=== PATIENT | male | born 1965 | race Hispanic/Latino ===

== ENCOUNTER 2017-11-25 17:51 | Inpatient (IN) | payer MEDICAID ==
--- NOTE | 2017-11-25 18:25 | C.PDOC ---
History Of Present Illness 51 year old male presents to the ED accompanied by his twin sister requesting detox from alcohol. Patient admits to drinking alcohol and reports he regularly drink 30 beers per day. Patient denies SI/HI, hallucinations, CP, SOB, abdominal pain. Time Seen by Provider: 11/25/17 18:09 Chief Complaint (Nursing): Substance Abuse History Per: Patient History/Exam Limitations: no limitations Onset/Duration Of Symptoms: Days Current Symptoms Are (Timing): Still Present Suicide/Self Injury Attempted (Context): None Modifying Factor(s): Alcohol Associated Symptoms: denies: Depression, Suicidal Thoughts, Suicidal Plan Recent travel outside of the [place]: No Additional History Per: Patient, Family Past Medical History Reviewed: Historical Data, Nursing Documentation, Vital Signs Vital Signs: Last Vital Signs Temp 98 F 11/25/17 21:31 Pulse 75 11/25/17 21:31 Resp 20 11/25/17 21:31 BP 109/66 11/25/17 21:31 Pulse Ox 94 L 11/25/17 21:31 - Medical History PMH: Back Problems, Depression, HTN Surgical History: No Surg Hx Family History: States: Unknown Family Hx - Social History Hx Alcohol Use: Yes Hx Substance Use: No - Immunization History Hx Tetanus Toxoid Vaccination: No Hx Influenza Vaccination: No Hx Pneumococcal Vaccination: No Review Of Systems Constitutional: Negative for: Fever, Chills Cardiovascular: Negative for: Chest Pain Respiratory: Negative for: Shortness of Breath Gastrointestinal: Negative for: Abdominal Pain Skin: Negative for: Rash Psych: Negative for: Depression, Suicidal ideation Physical Exam - Physical Exam Appears: Non-toxic, Other (obese, intoxicated, alcohol on breath ) Skin: Normal Color, Warm, Dry Head: Atraumatic, Normacephalic Eye(s): bilateral: Normal Inspection Nose: No Discharge Oral Mucosa: Moist Neck: Normal ROM, Supple Chest: Symmetrical Cardiovascular: Rhythm Regular, No Murmur Respiratory: Normal Breath Sounds, No Rales, No Rhonchi, No Wheezing Gastrointestinal/Abdominal: Soft, No Tenderness, No Guarding, No Rebound Extremity: Normal ROM, No Tenderness, No Swelling Neurological/Psych: Oriented x3 Gait: Unsteady (due to intoxication) ED Course And Treatment - Laboratory Results Result Diagrams: 11/25/17 18:30 11/25/17 18:30 Lab Interpretation: Abnormal (etoh 329 @ 6PM) O2 Sat by Pulse Oximetry: 95 (ON RA) Pulse Ox Interpretation: Normal - Radiology CXR: Interpreted by Me CXR Interpretation: Yes: No Acute Disease Progress Note: 8PM, Librium 50 mg PO for pt c/o agitation (foul mouthed) and "withdrawal" alcohol level estimated to still be about 300 but pt not sedated. Medical Decision Making Medical Decision Making: Impression: alcohol intoxication Plan: * Labs * UA * CXR Disposition - Disposition Disposition Time: 01:00 Condition: GOOD Forms: [facility] (Uzbek) - Clinical Impression Clinical Impression: Alcohol dependence - Scribe Statement The provider has reviewed the documentation as recorded by the Scribe Venkatesh Dumont All medical record entries made by the Scribe were at my direction and personally dictated by me. I have reviewed the chart and agree that the record accurately reflects my personal performance of the history, physical exam, medical decision making, and the department course for this patient. I have also personally directed, reviewed, and agree with the discharge instructions and disposition. Physician Patient Turnover Patient Signed Over To: Ollie Barron Handoff Comments: pending sober admission for Detox approx 2AM
[2017-11-25 18:38] LABS: HEMOGLOBIN 16.9 g/dL (12.0-18.0); MEAN CELL VOLUME 99.3 fL (80.0-94.0); MEAN CORPUSCULAR HEMOGLOBIN 34.1 pg (27.0-31.0); MEAN CORPUSCULAR HGB CONC 34.3 g/dL (33.0-37.0); MEAN PLATELET VOLUME 6.7 fL (7.2-11.7); PLATELET COUNT 239 K/uL (130-400); RBC 4.96 Mil/uL (4.40-5.90); RED CELL DISTRIBUTION WIDTH 13.9 % (11.5-14.5); WHITE BLOOD COUNT 3.4 K/uL (4.8-10.8)
[2017-11-25 18:42] LABS: SQUAMOUS EPITHIAL < 1 /hpf (0-5); URINE BILIRUBIN NEGATIVE (NEGATIVE); URINE BLOOD NEGATIVE (NEGATIVE); URINE CLARITY Clear (Clear); URINE COLOR Yellow (YELLOW); URINE GLUCOSE (UA) 1+ mg/dL (Normal); URINE LEUKOCYTE ESTERASE NEG Leu/uL (Negative); URINE PROTEIN NEGATIVE (NEGATIVE)
[2017-11-25 18:46] LABS: ALB/GLOB RATIO 1.1 (1.0-2.1); ALT/SGPT 25 U/L (21-72); AST/SGOT 32 U/L (17-59); BLOOD UREA NITROGEN 6 mg/dL (9-20); CALCIUM 8.7 mg/dl (8.6-10.4); GFR AFRICAN-AMERICAN > 60; GFR NON-AFRICAN AMERICAN > 60
[2017-11-25 18:56] LABS: BARBITURATES, UR NEGATIVE (NEGATIVE); BENZODIAZEPINES, UR NEGATIVE (NEGATIVE); OPIATES, UR NEGATIVE (NEGATIVE); PHENCYCLIDINE, UR NEGATIVE (NEGATIVE)
[2017-11-25 20:06] LABS: EOS % 0.4 % (0.0-4.0); LYMPH % 27.3 % (20.0-40.0); MONO % 14.7 % (0.0-10.0); NEUT % 55.9 % (50.0-75.0)
[2017-11-25 20:07] LABS: BASO # 0.1 K/uL (0.0-0.2); BASO % 1.7 % (0.0-2.0); LYMPH # 0.9 K/uL (1.0-4.3); MONO # 0.5 K/uL (0.0-0.8); NEUT # 1.9 K/uL (1.8-7.0)
--- NOTE | 2017-11-26 03:54 | PCM.BM ---
<SaadRosalieShara Alina - Last Filed: 11/26/17 03:53> Treatment Plan Problems - Problems identified on initial assessmt Alcohol Dependence Date Initiated: 11/26/17 Time Initiated: 03:54 Assessment reference: NA Status: Active Treatment assets and liabiliti Patient Assests: ADL independent Patient Liabilities: substance abuse, medical problems - Milieu Protocol Maintain good personal hygiene: daily Encourage regular showers, daily Remind patient to perform daily oral care, daily Assist patient to perform ADL's Maintain personal safety: every shift Educate patient to report safety concerns to staff, every shift Monitor environment for contraband/sharps Medication safety: Monitor for expected outcome, potential side effects: every shift, Assess barriers to learning: every shift, Assess readiness for medication education: every shift <Christina Harp - Last Filed: 11/27/17 13:35> Family Contact Family involvement: Famliy/SO not involved - Goals for Treatment Patient goals for treatment: COMPLETE DETOX AND TRANSITION TO OUTPATIENT COUNSELING. Discharge/Continuing Care - Education Needs Education Needs: Patient Medication, Patient Diagnosis/Disease Process, Patient Coping Skills, Patient Anger Management skills, Patient Placement options, Patient Community resources - Discharge Discharge Criteria: No longer exhibiting s/s of withdrawal, Reduction of target symptoms Discharge to:: Home - Treatment Team Participation Patient/Family/SO Statement: 11/27/17 13:36 "I WANNA DO OUTPATIENT..." Discussed with Family/SO: No Was Patient/Family/SO present at Treatment Team Meeting: Yes <David Sams - Last Filed: 11/28/17 00:39> - Diagnosis (1) Alcohol dependence Status: Acute Interventions: 11/28/17 00:39 * Assess 7x/week regarding severity of withdrawal * Educate regarding risks, benefits, side effects and alternatives of medications * Use Motivational Interviewing for abstinence * Use CBT for relapse prevention * Medication management for withdrawal symptoms * Encourage medication assisted treatment *
[2017-11-26] MEDS ORDERED: Aluminum Hydroxide/Magnesium Hydroxide Susp (30 mL) PO PRN (10:04)
[2017-11-26] MEDS ORDERED: Albuterol HFA 90 mcg/actuation (8 g) INH PRN (10:41)
[2017-11-26] MEDS ORDERED: Albuterol-Ipratrop 3 mg / 0.5 (3 ml) UD INH PRN (10:41)
[2017-11-26] MEDS: Multiple Vitamins Tab PO SCH (11:16)
--- NOTE | 2017-11-26 11:55 | RAD ---
HISTORY: adm COMPARISON: No prior. FINDINGS: LUNGS: No active pulmonary disease. PLEURA: No significant pleural effusion identified, no pneumothorax apparent. CARDIOVASCULAR: No radiographic findings to suggest acute or significant cardiovascular disease. OSSEOUS STRUCTURES: No significant abnormalities. VISUALIZED UPPER ABDOMEN: Normal. OTHER FINDINGS: None. IMPRESSION: No active disease.
[2017-11-26 12:02] LABS: ALB/GLOB RATIO 1.2 (1.0-2.1); ALBUMIN 3.8 g/dL (3.5-5.0); ALT/SGPT 21 U/L (21-72); AST/SGOT 34 U/L (17-59); BLOOD UREA NITROGEN 8 mg/dL (9-20); CALCIUM 8.6 mg/dl (8.6-10.4); GFR AFRICAN-AMERICAN > 60; GFR NON-AFRICAN AMERICAN > 60
--- NOTE | 2017-11-26 13:40 | PCM.PSYCH ---
Initial Psychiatric Evaluation - Initial Psychiatric Evaluation Type of Admission: Voluntary Legal Status: Capacity Chief Complaint (in patient's own words): "I am withdrawing." History of Present Illness and Precipitating Events: Patient is seen, chart reviewed, case discussed. This is a 51 year old male, who is unemployed and lives with adult son, who presented to ED for alcohol detox. Patient states that he is tired of drinking and wants to receive treatment for his alcohol use. He states his last drink was prior to arriving at the emergency room. In ED, alcohol level was 329. Patient states he has been drinking since he was 16 years old. He states he consumes 30 beers of beer per day. Patient states he is having signs of withdrawal, such as nausea, tremors, and chills. Patient denies vomiting, diarrhea, constipation, or headache. Patient states he currently feels depressed. He denies suicidal ideation. Patient was hospitalized for alcohol withdrawal in the past; he only stayed one night. Patient states he has never attended a detox or rehabilitation program before. He states his longest sobriety was for almost 12 months in 2016. Patient denies illicit drug use and tobacco use. past psych history: Dx'ed with depression medical history: arthritis, HTN Allergies: NKDA Current Medications: Active Medications Generic Name Dose Route Start Last Admin Trade Name Freq PRN Reason Stop Dose Admin Al Hydrox/Mg Hydrox/Simethicone 30 ml 11/26/17 10:04 Maalox 30 Ml PO TID PRN Indigestion / Heartburn Albuterol 1 puff 11/26/17 10:41 Ventolin Hfa 90 Mcg/Actuation (8 G) INH RQ4 PRN SOB Albuterol/Ipratropium 3 ml 11/26/17 10:41 Duoneb 3 Mg/0.5 Mg (3 Ml) Ud INH RQ4 PRN Severe SOB, wheezing Amlodipine Besylate 5 mg 11/26/17 10:45 11/26/17 11:16 Norvasc PO 5 mg DAILY AMY Administration Aspirin 81 mg 11/26/17 10:45 11/26/17 11:16 Aspirin Chewable PO 81 mg DAILY AMY Administration Chlordiazepoxide 25 mg 11/26/17 02:52 11/26/17 04:09 Librium PO 25 mg Q4H PRN Administration Alcohol Withdrawal Chlordiazepoxide 50 mg 11/26/17 12:00 11/26/17 11:15 Librium PO 12/01/17 11:59 50 mg Q6H AMY Administration Taper Clonidine HCl 0.1 mg 11/26/17 02:48 11/26/17 04:09 Catapres PO 0.1 mg Q4 PRN Administration symptoms of alcohol withdrawal Folic Acid 1 mg 11/26/17 10:15 11/26/17 11:16 Folic Acid PO 1 mg DAILY AMY Administration Gabapentin 300 mg 11/26/17 14:00 Neurontin PO TID AMY Hydrochlorothiazide 12.5 mg 11/26/17 10:45 11/26/17 11:44 Microzide PO 12.5 mg DAILY AMY Administration Hydroxyzine HCl 50 mg 11/26/17 10:04 Atarax PO Q6H PRN Anxiety Ibuprofen 600 mg 11/26/17 10:04 Motrin Tab PO Q6H PRN Pain, moderate (4-7) Multivitamins 1 tab 11/26/17 10:15 11/26/17 11:16 Hexavitamin PO 1 tab DAILY AMY Administration Ondansetron HCl 4 mg 11/26/17 10:04 Zofran Tab PO Q8 PRN Nausea/Vomiting Prednisone 5 mg 11/26/17 10:45 11/26/17 11:44 Prednisone Tab PO 5 mg DAILY AMY Administration Sertraline HCl 50 mg 11/26/17 10:45 11/26/17 11:16 Zoloft PO 50 mg DAILY AMY Administration Thiamine HCl 100 mg 11/26/17 10:15 11/26/17 11:16 Vitamin B1 Tab PO 100 mg DAILY AMY Administration Trazodone HCl 100 mg 11/26/17 10:02 Desyrel PO HS PRN Insomnia Past Psychiatric History - Past Psychiatric History Previous Treatment History: None Pertinent Medical Hx (Current Medical&Sleep Prob, Allergies): Allergies Allergy/AdvReac Type Severity Reaction Status Date / Time No Known Allergies Allergy Verified 11/25/17 18:03 Albuterol Sulfate [Proair Hfa] 0.09 mg IH Q4 PRN 11/25/17 Aspirin 81 mg PO DAILY 11/25/17 Fluticasone Propionate [Flovent Hfa] 10.6 gm IH BID 11/25/17 Folic Acid 1 mg PO DAILY 11/25/17 Gabapentin [Neurontin] 300 mg PO TID 11/25/17 Meloxicam [Mobic] 15 mg PO DAILY 11/25/17 Sertraline [Zoloft] 50 mg PO DAILY 11/25/17 amLODIPine [Norvasc] 5 mg PO DAILY 11/25/17 hydroCHLOROthiazide [Microzide] 12.5 mg PO DAILY 11/25/17 predniSONE [predniSONE Tab] 5 mg PO DAILY 11/25/17 traMADol [Ultram] 50 mg PO Q8 PRN 11/25/17 Review of Systems - Review of Systems All systems: reviewed and no additional remarkable complaints except - Constitutional Constitutional: Chills, Sweats - Gastrointestinal Gastrointestinal: Nausea. absent: Constipation, Diarrhea, Vomiting - Psychiatric Psychiatric: Abnormal Sleep Pattern, Depression. absent: Hallucinations, Homicidal Ideation, Hopelessness, Suicidal Ideation Mental Status Examination - Personal Presentation Personal Presentation: Looks older than stated age - Affect Affect: Flat - Motor Activity Motor Activity: Calm - Reliability in Providing Information Reliability in Providing Information: Fair - Speech Speech: Organized - Mood Mood: Depressed - Formal Thought Process Formal Thought Process: No Impairment - Obsessions/Compulsions Obsessions: No Compulsions: No - Cognitive Functions Orientation: Person, Place, Situation Sensorium: Alert - Risk Risk: Withdrawal - Strength & Assets Inventory Strength & Assets Inventory: Family support DSM 5 DX - DSM 5 DSM 5 Diagnosis: Alcohol Use Disorder, severe - Recommended/Plan of Treatment Treatment Recommendations and Plan of Treatment: Start taper with librium Gabapentin for augmentation Zoloft for depression As needed medications All risks, benefits and alternatives of the meds discussed, and the pt agreed and understood. Attend groups and activities Supportive therapy and psychoeducation MN for abstinence CBT for relapse prevention Encourage MAT Refer to rehab or IOP, and self-help groups Smoking cessation with [place] Nicotine patch if needed 34 min Projected ELOS: 5-6 days Prognosis: good - Smoking Cessation Smoking Cessation Initiated: Yes
[2017-11-27] MEDS: Multiple Vitamins Tab PO SCH (09:17)
--- NOTE | 2017-11-27 14:09 | PCM.PYCHPN ---
Psychiatric Progress Note - Psychiatric Progress Note Patient seen today, length of contact: 15 minutes Patient Chief Complaint: "I am not well" Problems Identified/Issues Discussed: The pt is seen, chart reviewed, case discussed with staff. Patient states he is not sleeping well. He is still having withdrawal symptoms. Patient instructed to ask for as needed medications. Support given, CBT and FL used briefly No new symptoms reported, improving slowly and needs more time No SEs from medications, risks discussed. After care discussed Medication Change: Yes (detox changes daily) Medical Record Reviewed: Yes Mental Status Examination - Cognitive Function Orientation: Person, Place, Situation, Time Memory: Intact Attention: Poor Concentration: Poor Association: WNL Fund of Knowledge: WNL - Mood Mood: Depressed - Affect Affect: Blunted - Speech Speech: Appropriate - Formal Thought Process Formal Thought Process: No Impairment - Suicidal Ideation Suicidal Ideation: No - Homicidal Ideation Homicidal Ideation: No Goal/Treatment Plan - Goal/Treatment Plan Need for Continued Stay: Discharge may exacerbated symptoms, Severe functional impairment Progress Toward Problem(s) and Goals/Treatment Plan: Continue medications Support and psychoeducation daily Attend groups and activities daily After care planning by counselors Follow intake plan
[2017-11-28 06:21] VITALS: RESP 18
[2017-11-28] MEDS: Multiple Vitamins Tab PO SCH (09:20)
--- NOTE | 2017-11-28 10:33 | PCM.PYCHPN ---
Psychiatric Progress Note - Psychiatric Progress Note Patient seen today, length of contact: 15 minutes Patient Chief Complaint: I am withdrawing.' Medication Change: Yes (detox changes daily) Medical Record Reviewed: Yes Mental Status Examination - Cognitive Function Orientation: Person, Place, Situation, Time Memory: Intact Attention: WNL Concentration: WNL Association: WNL Fund of Knowledge: WNL - Mood Mood: Depressed - Affect Affect: Blunted - Speech Speech: Appropriate - Formal Thought Process Formal Thought Process: No Impairment - Suicidal Ideation Suicidal Ideation: No - Homicidal Ideation Homicidal Ideation: No Goal/Treatment Plan - Goal/Treatment Plan Need for Continued Stay: Discharge may exacerbated symptoms, Severe functional impairment Progress Toward Problem(s) and Goals/Treatment Plan: Alcohol Use Disorder, severe Taper with librium Gabapentin for augmentation Zoloft for depression As needed medications All risks, benefits and alternatives of the meds discussed, and the pt agreed and understood. Attend groups and activities Supportive therapy and psychoeducation [place] for abstinence CBT for relapse prevention Encourage MAT Refer to rehab or IOP, and self-help groups Smoking cessation with [place] Nicotine patch if needed - Smoking Cessation Smoking Cessation Initiated: No
[2017-11-28 13:37] VITALS: BP 145/88; PULSE 79; TEMP 98.2; O2SAT 96
--- NOTE | 2017-11-28 22:34 | PCM.PYCHDC ---
Mental Status Examination - Mental Status Examination Orientation: Person, Place, Situation, Time Memory: Intact Mood: Neutral Affect: Constricted Speech: Soft Attention: WNL Concentration: WNL Association: WNL Fund of Knowledge: WNL Formal Thought Process: No Impairment Description of patient's judgement and insight: Partially impaired Psychotic Thoughts and Behaviors: Denies any AVH Suicidal Ideation: No Current Homicidal Ideation?: No Discharge Summary - Discharge Note Reason for Hospitalization: This is a 51 year old male, who is unemployed and lives with adult son, who presented to ED for alcohol detox. Patient states that he is tired of drinking and wants to receive treatment for his alcohol use. He states his last drink was prior to arriving at the emergency room. In ED, alcohol level was 329. Patient states he has been drinking since he was 16 years old. He states he consumes 30 beers of beer per day. Patient states he is having signs of withdrawal, such as nausea, tremors, and chills. Patient denies vomiting, diarrhea, constipation, or headache. Patient states he currently feels depressed. He denies suicidal ideation. Patient was hospitalized for alcohol withdrawal in the past; he only stayed one night. Patient states he has never attended a detox or rehabilitation program before. He states his longest sobriety was for almost 12 months in 2016. Patient denies illicit drug use and tobacco use. past psych history: Dx'ed with depression medical history: arthritis, HTN Consultations:: List each consultation separately and include: 1. Reason for request. 2. Findings. 3. Follow-up Summary of Hospital Course include:: 1. Description of specific treatment plan utilized for patients during their course of treatmen. 2. Summarize the time- course for resolution of acute symptoms and/or regressed behaviors. 3. Describe issues identified and worked on during hospitalization. 4. Describe medication utilized. 5. Describe medical problems identified and treated. 6. Reassessment of suicide risk - Final Diagnosis (DSM 5) Condition upon Discharge: GOOD DSM 5: Alcohol Use Disorder, severe Alcohol withdrawal Depressive disorder Disposition: AGAINST MEDICAL ADVICE Follow-up Treatment Plan: Alcohol Use Disorder, severe Taper with librium Gabapentin for augmentation Zoloft for depression As needed medications All risks, benefits and alternatives of the meds discussed, and the pt agreed and understood. Attend groups and activities Supportive therapy and psychoeducation [place] for abstinence CBT for relapse prevention Encourage MAT Refer to rehab or IOP, and self-help groups Smoking cessation with FL Nicotine patch if needed Prescriptions/Medication Reconciliation: Gabapentin [Neurontin] 300 mg PO TID 14 Days cap Sertraline [Zoloft] 50 mg PO DAILY #14 tab traZODone [Desyrel] 100 mg PO HS PRN #14 tab PRN Reason: Insomnia - Smoking Cessation Smoking Cessation Medication prescribed: No - Antipsychotic Medications Pt discharged on 2 or more routine antipsychotic medications: No
== END 2017-11-28 14:30 | disposition left against medical advice (07) | DRG 749 ==
LOC: C.ER 17:51 → C.9E 19:41 → UNDOADMIN 19:41 → C.7D 11-26 02:12
PROC: HZ2ZZZZ Detoxification Services for Substance Abuse Treatment (ICD-10-PCS; principal; 2017-11-26)
DX: F10.129 Alcohol abuse with intoxication, unspecified (principal); F10.230 Alcohol dependence with withdrawal, uncomplicated; F10.220 Alcohol dependence with intoxication, uncomplicated; Y90.8 Blood alcohol level of 240 mg/100 ml or more; F32.9 Major depressive disorder, single episode, unspecified; I10 Essential (primary) hypertension; Z68.39 Body mass index [BMI] 39.0-39.9, adult; E66.9 Obesity, unspecified

== ENCOUNTER 2018-04-26 13:12 | Inpatient (IN) | payer MEDICAID ==
[2018-04-26 14:08] LABS: BASO % 0.7 % (0.0-2.0); EOS % 0.7 % (0.0-4.0); LYMPH # 1.5 K/uL (1.0-4.3); LYMPH % 21.7 % (20.0-40.0); MEAN CORPUSCULAR HGB CONC 35.4 g/dL (33.0-37.0); MEAN PLATELET VOLUME 6.8 fL (7.2-11.7); MONO # 0.4 K/uL (0.0-0.8); MONO % 5.1 % (0.0-10.0); NEUT % 71.8 % (50.0-75.0); RBC 4.85 Mil/uL (4.40-5.90); RED CELL DISTRIBUTION WIDTH 15.8 % (11.5-14.5)
[2018-04-26 14:09] LABS: MEAN CELL VOLUME 93.1 fL (80.0-94.0)
[2018-04-26 14:15] LABS: URINE BILIRUBIN NEGATIVE (NEGATIVE); URINE BLOOD NEGATIVE (NEGATIVE); URINE CLARITY Clear (Clear); URINE COLOR Yellow (YELLOW); URINE GLUCOSE (UA) NORMAL (Normal); URINE LEUKOCYTE ESTERASE NEG Leu/uL (Negative); URINE PROTEIN NEGATIVE (NEGATIVE); URINE UROBILINOGEN NORMAL mg/dL (0.2-1.0)
[2018-04-26 14:20] LABS: ALB/GLOB RATIO 1.4 (1.0-2.1); ALBUMIN 4.6 g/dL (3.5-5.0); ALT/SGPT 28 U/L (21-72); AST/SGOT 37 U/L (17-59); BLOOD UREA NITROGEN 9 mg/dL (9-20); GFR NON-AFRICAN AMERICAN > 60
[2018-04-26 14:27] LABS: BARBITURATES, UR NEGATIVE (NEGATIVE); BENZODIAZEPINES, UR NEGATIVE (NEGATIVE); OPIATES, UR NEGATIVE (NEGATIVE); PHENCYCLIDINE, UR NEGATIVE (NEGATIVE)
--- NOTE | 2018-04-26 14:42 | C.PDOC ---
History Of Present Illness 52 year old male present to ED for alcohol detox. Patient states he is a daily drinker of alcohol and his last drink was one hour ago. Patient complains of mild nausea. He denies any other physical complaints. Time Seen by Provider: 04/26/18 13:26 Chief Complaint (Nursing): Substance Abuse History Per: Patient History/Exam Limitations: no limitations Onset/Duration Of Symptoms: Days Current Symptoms Are (Timing): Still Present Modifying Factor(s): Alcohol Severity: Moderate Recent travel outside of the [place]: No Past Medical History Reviewed: Historical Data, Nursing Documentation, Vital Signs Vital Signs: Last Vital Signs Temp 99.1 F 04/26/18 13:36 Pulse 67 04/26/18 13:36 Resp 16 04/26/18 13:36 BP 119/78 04/26/18 13:36 Pulse Ox 97 04/26/18 16:41 - Medical History PMH: Back Problems, Depression, HTN Surgical History: No Surg Hx - [facility]OX[facility] FOR SUBSTANCE ABUSE TREATMENT (11/26/17) Family History: States: No Known Family Hx - Social History Hx Alcohol Use: Yes Hx Substance Use: Yes - Immunization History Hx Tetanus Toxoid Vaccination: No Hx Influenza Vaccination: No Hx Pneumococcal Vaccination: No Review Of Systems Constitutional: Negative for: Fever, Chills Cardiovascular: Negative for: Chest Pain Respiratory: Negative for: Cough, Shortness of Breath Gastrointestinal: Positive for: Nausea (mild). Negative for: Vomiting, Abdominal Pain, Diarrhea Genitourinary: Negative for: Dysuria, Hematuria Neurological: Negative for: Weakness, Numbness Physical Exam - Physical Exam Appears: Well, No Acute Distress, Other (appears intoxicated ) Skin: Warm, Dry Head: Atraumatic, Normacephalic Eye(s): bilateral: Normal Inspection Oral Mucosa: Moist Neck: Supple Cardiovascular: Rhythm Regular Respiratory: Normal Breath Sounds, No Rales, No Rhonchi, No Wheezing Gastrointestinal/Abdominal: Normal Exam, Bowel Sounds, Soft, No Tenderness Neurological/Psych: Oriented x3 ED Course And Treatment - Laboratory Results Result Diagrams: 04/26/18 14:04 04/26/18 14:04 O2 Sat by Pulse Oximetry: 97 (RA) Pulse Ox Interpretation: Normal Progress Note: Usual pre detox blood work and urinalysis was ordered. Patient was given pepcid and zofran. Patient is waiting on medical clearance. 3:30PM- Patient medically cleared. Pending crisis. 4:40PM- Patient seen by crisis counselor, who discussed patient with Dr. Harvey. Patient to be admitted, but only at 8pm due to elevated alcohol elevel. Disposition - Disposition Disposition Time: 19:00 Condition: STABLE Forms: [facility] (Qatari) - Clinical Impression Clinical Impression: Alcohol dependence - Scribe Statement The provider has reviewed the documentation as recorded by the Akil Sainz Provider Attestation: All medical record entries made by the Akil were at my direction and personally dictated by me. I have reviewed the chart and agree that the record accurately reflects my personal performance of the history, physical exam, medical decision making, and the department course for this patient. I have also personally directed, reviewed, and agree with the discharge instructions and disposition. Physician Patient Turnover Patient Signed Over To: Ollie Barron Handoff Comments: pending detox bed
--- NOTE | 2018-04-26 20:16 | PCM.BM ---
<Amy Lee - Last Filed: 04/26/18 20:15> Treatment Plan Problems - Problems identified on initial assessmt potientil for autonomic instability related to alcohol withdrawal Date Initiated: 04/26/18 Time Initiated: 20:16 Assessment reference: NA Status: Active Treatment assets and liabiliti Patient Assests: ADL independent, good support system, cognitively intact Patient Liabilities: substance abuse, medical problems - Milieu Protocol Maintain good personal hygiene: daily Encourage regular showers, daily Remind patient to perform daily oral care, daily Assist patient to perform ADL's Maintain personal safety: every shift Educate patient to report safety concerns to staff, every shift Monitor environment for contraband/sharps Medication safety: Monitor for expected outcome, potential side effects: every shift, Assess barriers to learning: every shift, Assess readiness for medication education: every shift <David Sams - Last Filed: 04/28/18 00:00> - Diagnosis (1) Alcohol dependence Status: Acute Interventions: 04/28/18 00:00 * Assess 7x/week regarding severity of withdrawal * Educate regarding risks, benefits, side effects and alternatives of medications * Use Motivational Interviewing for abstinence * Use CBT for relapse prevention * Medication management for withdrawal symptoms * Encourage medication assisted treatment *
[2018-04-27] MEDS: Multiple Vitamins Tab PO SCH (11:36)
--- NOTE | 2018-04-27 12:20 | PCM.PSYCH ---
Initial Psychiatric Evaluation - Initial Psychiatric Evaluation Type of Admission: Voluntary Legal Status: Capacity Chief Complaint (in patient's own words): "I am not well" History of Present Illness and Precipitating Events: Patient is seen, chart reviewed, case discussed. He is known from previous admission. Poor historian due to cognitive slowness. This is a 52 year old male, who is unemployed and lives with adult son, who presented to ED for alcohol detox. He is on disability and has 2 adult children. He is a . Patient states he has been drinking since he was 16 years old but got worse after 2011 when he lost his . He states he consumes 30 beers of beer per day. Patient states he has many wdw sxs. Patient states he is currently feels very depressed. He denies suicidal ideation. He denies drug use Patient was hospitalized for alcohol withdrawal in the past and AMA'ed. Patient states he has never attended a detox or rehabilitation program before. He states his longest sobriety was for almost 12 months in 2016. Patient denies illicit drug use and tobacco use. past psych history: Dx'ed with depression medical history: arthritis, HTN, psoriasis Allergies: NKDA Current Medications: Active Medications Generic Name Dose Route Start Last Admin Trade Name Freq PRN Reason Stop Dose Admin Chlordiazepoxide 25 mg 04/27/18 00:00 04/27/18 11:36 Librium PO 04/30/18 23:59 25 mg Q6 AMY Administration Taper Chlordiazepoxide 25 mg 04/26/18 20:57 04/27/18 09:09 Librium PO 25 mg Q4H PRN Administration Alcohol Withdrawal Clonidine HCl 0.1 mg 04/26/18 20:57 Catapres PO Q4H PRN Symptoms of alcohol withdrawl Folic Acid 1 mg 04/27/18 10:00 04/27/18 11:53 Folic Acid PO Not Given DAILY AMY Gabapentin 300 mg 04/27/18 14:00 Neurontin PO TID AMY Hydrochlorothiazide 12.5 mg 04/27/18 11:15 Microzide PO DAILY AMY Ibuprofen 600 mg 04/27/18 11:05 Motrin Tab PO Q6H PRN Pain, moderate (4-7) Multivitamins 1 tab 04/27/18 10:00 04/27/18 11:36 Hexavitamin PO 1 tab DAILY AMY Administration Quetiapine Fumarate 50 mg 04/27/18 22:00 Seroquel PO HS AMY Thiamine HCl 100 mg 04/27/18 10:00 04/27/18 11:36 Vitamin B1 Tab PO 100 mg DAILY AMY Administration Trazodone HCl 100 mg 04/26/18 20:59 04/26/18 21:25 Desyrel PO 100 mg HS PRN Administration insomnia Past Psychiatric History - Past Psychiatric History Pertinent Medical Hx (Current Medical&Sleep Prob, Allergies): Allergies Allergy/AdvReac Type Severity Reaction Status Date / Time No Known Allergies Allergy Verified 04/26/18 13:35 Meloxicam [Mobic] 15 mg PO DAILY 11/25/17 hydroCHLOROthiazide [Microzide] 12.5 mg PO DAILY 11/25/17 traMADol [Ultram] 50 mg PO Q8 PRN 11/25/17 Gabapentin [Neurontin] 300 mg PO TID 14 Days cap 11/28/17 Clobetasol Propionate/Emoll [Clobetasol Emollnt 0.05% Foam] 50 gm TP HS traZODone [Desyrel] 100 mg PO HS 04/26/18 DSM 5 DX - DSM 5 DSM 5 Diagnosis: Alcohol withdrawal Alcohol Use Disorder, severe r/o Alcohol-induced cognitive decline Major depressive d/o - Recommended/Plan of Treatment Treatment Recommendations and Plan of Treatment: Taper with librium Gabapentin for augmentation Lexapro for depression As needed medications All risks, benefits and alternatives of the meds discussed, and the pt agreed and understood. Attend groups and activities Supportive therapy and psychoeducation [place] for abstinence CBT for relapse prevention Encourage MAT Refer to rehab or IOP, and self-help groups Smoking cessation with GA Nicotine patch if needed 34 min Projected ELOS: 4-5 days Prognosis: good w treatment - Smoking Cessation Smoking Cessation Initiated: Yes
[2018-04-28] MEDS: Multiple Vitamins Tab PO SCH (09:50)
--- NOTE | 2018-04-29 00:27 | PCM.PYCHPN ---
Psychiatric Progress Note - Psychiatric Progress Note Patient seen today, length of contact: 16 min Patient Chief Complaint: "I am withdrawing" Problems Identified/Issues Discussed: The pt is seen, chart reviewed, case discussed with staff. The pt is compliant with medications and reports no side-effects. Symptoms are improving but needs more time to stabilize. After care discussed, support and psychoeducation given. Medication Change: Yes (etox changes daily) Medical Record Reviewed: Yes Mental Status Examination - Cognitive Function Orientation: Person, Place, Situation, Time Memory: Intact Attention: WNL Concentration: WNL Association: WNL Fund of Knowledge: WNL - Mood Mood: Anxious - Affect Affect: Constricted - Speech Speech: Appropriate - Formal Thought Process Formal Thought Process: No Impairment - Suicidal Ideation Suicidal Ideation: No - Homicidal Ideation Homicidal Ideation: No Goal/Treatment Plan - Goal/Treatment Plan Need for Continued Stay: Discharge may exacerbated symptoms, Severe functional impairment Progress Toward Problem(s) and Goals/Treatment Plan: Taper with librium Gabapentin for augmentation Lexapro for depression As needed medications All risks, benefits and alternatives of the meds discussed, and the pt agreed and understood. Attend groups and activities Supportive therapy and psychoeducation [place] for abstinence CBT for relapse prevention Encourage MAT Refer to rehab or IOP, and self-help groups Smoking cessation with [place] Nicotine patch if needed
[2018-04-29] MEDS: Multiple Vitamins Tab PO SCH (09:30)
[2018-04-30 08:50] VITALS: BP 134/84; PULSE 91; RESP 19; TEMP 98.7; O2SAT 97
--- NOTE | 2018-04-30 09:04 | PCM.PYCHDC ---
Mental Status Examination - Mental Status Examination Orientation: Person Discharge Summary - Discharge Note Consultations:: List each consultation separately and include: 1. Reason for request. 2. Findings. 3. Follow-up Summary of Hospital Course include:: 1. Description of specific treatment plan utilized for patients during their course of treatmen. 2. Summarize the time- course for resolution of acute symptoms and/or regressed behaviors. 3. Describe issues identified and worked on during hospitalization. 4. Describe medication utilized. 5. Describe medical problems identified and treated. 6. Reassessment of suicide risk Summary of Hospital Course: Patient is seen, chart reviewed, case discussed. He is known from previous admission. Poor historian due to cognitive slowness. This is a 52 year old male, who is unemployed and lives with adult son, who presented to ED for alcohol detox. He is on disability and has 2 adult children. He is a . Patient states he has been drinking since he was 16 years old but got worse after 2011 when he lost his . He states he consumes 30 beers of beer per day. Patient states he has many wdw sxs. Patient states he is currently feels very depressed. He denies suicidal ideation. He denies drug use Patient was hospitalized for alcohol withdrawal in the past and AMA'ed. Patient states he has never attended a detox or rehabilitation program before. He states his longest sobriety was for almost 12 months in 2016. Patient denies illicit drug use and tobacco use. past psych history: Dx'ed with depression medical history: arthritis, HTN, psoriasis Allergies: NKDA CT - Diagnosis (1) Alcohol dependence Current Visit: Yes Status: Acute - Final Diagnosis (DSM 5) Condition upon Discharge: STABLE Disposition: HOME/ ROUTINE Follow-up Treatment Plan: Taper with librium Gabapentin for augmentation Lexapro for depression As needed medications All risks, benefits and alternatives of the meds discussed, and the pt agreed and understood. Attend groups and activities Supportive therapy and psychoeducation [place] for abstinence CBT for relapse prevention Encourage MAT Refer to rehab or IOP, and self-help groups Smoking cessation with PR Nicotine patch if needed 34 min Prescriptions/Medication Reconciliation: Escitalopram [Lexapro] 10 mg PO DAILY #30 tab Gabapentin [Neurontin] 300 mg PO TID 30 Days #90 cap hydroCHLOROthiazide [Microzide] 12.5 mg PO DAILY #30 cap Naltrexone [Revia] 50 mg PO DAILY #30 tab traZODone [Desyrel] 100 mg PO HS PRN #30 tab PRN Reason: insomnia
[2018-04-30] MEDS: Multiple Vitamins Tab PO SCH (09:30)
--- NOTE | 2018-05-01 00:28 | PCM.PYCHPN ---
Psychiatric Progress Note - Psychiatric Progress Note Patient seen today, length of contact: 16 min Patient Chief Complaint: "I am withdrawing" Problems Identified/Issues Discussed: The pt is seen, chart reviewed, case discussed with staff. The pt is compliant with medications and reports no side-effects. Symptoms are improving but needs more time to stabilize. After care discussed, support and psychoeducation given. Medication Change: Yes (etox changes daily) Medical Record Reviewed: Yes Mental Status Examination - Cognitive Function Orientation: Person, Place, Situation, Time Memory: Intact Attention: WNL Concentration: WNL Association: WNL Fund of Knowledge: WNL - Mood Mood: Anxious - Affect Affect: Constricted - Speech Speech: Appropriate - Formal Thought Process Formal Thought Process: No Impairment - Suicidal Ideation Suicidal Ideation: No - Homicidal Ideation Homicidal Ideation: No Goal/Treatment Plan - Goal/Treatment Plan Need for Continued Stay: Discharge may exacerbated symptoms, Severe functional impairment Progress Toward Problem(s) and Goals/Treatment Plan: Taper with librium Gabapentin for augmentation Lexapro for depression As needed medications All risks, benefits and alternatives of the meds discussed, and the pt agreed and understood. Attend groups and activities Supportive therapy and psychoeducation [place] for abstinence CBT for relapse prevention Encourage MAT Refer to rehab or IOP, and self-help groups Smoking cessation with [place] Nicotine patch if needed
== END 2018-04-30 10:35 | disposition home or self-care (01) | DRG 751 ==
LOC: C.ER 13:12 → C.7D 20:00
DX: F10.230 Alcohol dependence with withdrawal, uncomplicated (principal); F10.220 Alcohol dependence with intoxication, uncomplicated; Y90.8 Blood alcohol level of 240 mg/100 ml or more; F32.9 Major depressive disorder, single episode, unspecified; I10 Essential (primary) hypertension